=== PATIENT | female | born 1985 | race Caucasian/White ===

== ENCOUNTER 2020-12-05 08:37 | Outpatient (CLI) | payer BC, SELFPAY ==
--- NOTE | ~2020-12-05 | XR_ITS ---
EXAMINATION: XR chest 2V DATE: 12/05/2020 09:05 INDICATION: Chest pain TECHNIQUE: Frontal and lateral views of the chest are obtained COMPARISON: None available FINDINGS: The lungs are free of acute opacities. There is no pleural effusion or pneumothorax. The ca rdiomediastinal silhouette is normal. The visualized bones and soft tissues are unremarkable. IMPRESSION: 1. No acute cardiopulmonary abnormality. Reviewed, dictated and finalized at location A. [employer]
--- NOTE | ~2020-12-05 | US_ITS ---
EXAMINATION: US right upper quadrant DATE: 12/05/2020 09:07 INDICATION: Abdominal pain. TECHNIQUE: Multiple grayscale and Doppler ultrasound images of the abdomen were obtained. COMPARISON: None FINDINGS: The visualized portions of the head, body, and tail of the pancreas are normal. The liver i s normal without focal lesion. There is normal flow in main portal vein. The gallbladder is normal in size. No gallstones or gallbladder wall thickening. There was no sonographic Williamson sign. The common duct is normal measures 4 mm. IMPRESSION: 1. Normal right upper quadrant ultrasound. Reviewed, dictated and finalized at location A. [employer]
== END 2020-12-05 08:38 | disposition home or self-care (01) ==
LOC: ANHIMG 08:45
PROVIDERS: PCP Internal Medicine; Visit Provider Internal Medicine
DX: R10.9 Unspecified abdominal pain (principal); R07.9 Chest pain, unspecified
CPT/HCPCS: 71046; 76705

== ENCOUNTER 2023-03-29 15:45 | Outpatient (RCR) | payer BC, SELFPAY ==
--- NOTE | 2023-03-10 11:09 | PTOPEVAL1 ---
Assessment and note entered by Maeve Matthew DPT Evaluation Information Assessment Status Evaluation Subjective Information Pt reports a history of urinary incontinence. Has been worsening over the past 6 months but has had some previously as well. Likely occurs 1-2 times a week. Volume is usually a few drops unless she has to jump or does some high level activity. Leakage occurs with coughing, sneezing, jumping, lifting, and if she holds her bladder too long. Can hold urine 15-20 minutes. Urinates less than 10 times a day, sometimes 1 time at night. BM anywhere from multiple a day to every couple days. No pain with BM or urinating. Denies history of pelvic pain. Patient goal: Decrease leakage, avoid bladder surgery. No return to MD scheduled. Pt has had 2 children- and then . [place] during second child. Reported Pain Level Pain Score 0: Self Report Assessment PT Clinical Summary The patient is presenting to skilled therapy with worsening urinary incontinence over the past 6 months. She demonstrates pelvic floor and overall core/hip weakness which are contributing to her incontinence with activities including coughing, sneezing, and lifting. She will highly benefit from therapy to address these impairments and safely return to prior level of function. Plan of Care Interventions Manual Therapy,Neuro Re-education,Patient/ Caregiver Education,Therapeutic Activities, Therapeutic Exercise,Self-Care/Home Management PT Services Indicated Yes Treatment Frequency and 1 time a week for 4 weeks Duration These treatments will address the objective and functional deficits as defined above. The patient will be advanced safely and appropriately in order for the patient to progress towards his/her prior level of function. Additional exercises will be introduced and as well as a comprehensive home exercise program upon discharge, if needed, ?to ensure carryover of functional gains achieved in the clinic. This treatment plan has been reviewed and agreement upon by the patient.
--- NOTE | 2023-03-24 14:52 | PCPTNOTE ---
Patient forgot about appointment today and did not show up. Will be here next week.
--- NOTE | 2023-03-29 16:01 | PCPTNOTE ---
Patient did not show up for appointment 03/29/23. Called patient but voicemail was not set up.
--- NOTE | 2023-04-05 14:19 | PCPTNOTE ---
Patient did not show up for visit on 04/05/23. Voicemail was not set up on her phone.
--- NOTE | 2023-04-05 14:20 | PTOPDC ---
Assessment and note entered by Maeve Matthew, DPT Evaluation Information Assessment Status Discharge - Pt Not Present Subjective Information Assessment PT Clinical Summary The patient has not attended therapy since 03/15/23 and has no showed 3 visits since then. Per our attendance policy, she will be discharged this date and need a new script to return to therapy in the future. Plan of Care PT Services Indicated No
== END 2023-04-05 14:45 | disposition home or self-care (01) ==
LOC: ANHGOSHPT 15:45
PROVIDERS: PCP Internal Medicine; Visit Provider Physician Assistant
DX: N39.46 Mixed incontinence (principal)
CPT/HCPCS: 97112; 97161; 99199